=== PATIENT | female | born 1995 | race Caucasian/White ===

== ENCOUNTER 2020-12-24 15:06 | Inpatient (IN) | payer OTHER ==
[2020-12-24 17:44] LABS: HCT 37.1 % (37.0-47.0); HGB 12.7 g/dl (12.5-16.0); MCH 33.2 pg (25.0-31.0); MCHC 34.2 g/dL (32.0-36.0); MCV 97.1 fL (78.0-100.0); MPV 12.8 fL (6.0-9.5); RBC 3.82 M/uL (4.20-5.40); RDW 12.6 % (11.5-14.0); WBC 8.3 K/uL (4.0-10.5)
[2020-12-24 18:04] LABS: ALBUMIN 2.8 g/dL (3.4-5.0); BILIRUBIN - TOTAL 0.4 mg/dL (0.2-1.0); BUN/CREAT RATIO (CALC) 8.9 RATIO; CREATININE 0.56 mg/dL (0.51-0.95); GLOBULIN (CALCULATION) 3.8 g/dL; POTASSIUM 3.4 mmol/L (3.5-5.1); TOTAL PROTEIN 6.6 g/dL (6.4-8.2)
[2020-12-24 18:05] LABS: BILIRUBIN NEGATIVE (NEGATIVE); BLOOD NEGATIVE Ery/uL (NEGATIVE); CLARITY CLEAR (CLEAR); COLOR YELLOW (YELLOW); GLUCOSE (U) NORMAL (NORMAL); LEUKOCYTES TRACE Leu/uL (NEGATIVE); NITRITE NEGATIVE (NEGATIVE); PROTEIN NEGATIVE (NEGATIVE)
[2020-12-24 18:09] LABS: BACTERIA 1+
[2020-12-24 18:59] LABS: PROTEIN:CREATININE 0.13 RATIO; URINE CREATININE 113.9 mg/dL (29.00-226.00); URINE TOTAL PROTEIN-RANDOM 14.9 mg/dL (<11.9)
[2020-12-26 06:01] LABS: HCT 33.7 % (37.0-47.0); HGB 11.4 g/dl (12.5-16.0); MCH 33.3 pg (25.0-31.0); MCHC 33.8 g/dL (32.0-36.0); MCV 98.5 fL (78.0-100.0); MPV 12.5 fL (6.0-9.5); RBC 3.42 M/uL (4.20-5.40); RDW 12.5 % (11.5-14.0); WBC 8.3 K/uL (4.0-10.5)
== END 2020-12-27 14:45 | disposition home or self-care (01) | DRG 806 ==
LOC: FOB 15:06
PROVIDERS: Obstetrics & Gynecology; ADMIT Obstetrics & Gynecology
PROC: 10E0XZZ Delivery of Products of Conception, External Approach (ICD-10-PCS; principal; 2020-12-25)
PROC: 0UQMXZZ Repair Vulva, External Approach (ICD-10-PCS; 2020-12-25)
DX: O99.52 Diseases of the respiratory system complicating childbirth (principal); O98.32 Other infections with a predominantly sexual mode of transmission complicating childbirth; Z37.0 Single live birth; Z3A.40 40 weeks gestation of pregnancy; O66.0 Obstructed labor due to shoulder dystocia; J45.909 Unspecified asthma, uncomplicated; O71.82 Other specified trauma to perineum and vulva; R03.0 Elevated blood-pressure reading, without diagnosis of hypertension; F17.210 Nicotine dependence, cigarettes, uncomplicated; O99.334 Smoking (tobacco) complicating childbirth; Z14.8 Genetic carrier of other disease; A60.00 Herpesviral infection of urogenital system, unspecified; O99.344 Other mental disorders complicating childbirth; F41.9 Anxiety disorder, unspecified; F32.9 Major depressive disorder, single episode, unspecified; Z90.49 Acquired absence of other specified parts of digestive tract; Z90.89 Acquired absence of other organs
CPT/HCPCS: 36415; 80053; 81001; 82570; 83615; 84156; 84550; 86850; 86900; 86901; J2300; J2405; J7120; U0002

== ENCOUNTER 2021-02-24 20:05 | Emergency (ER) | payer OTHER | END 2021-02-24 23:35 | disposition home or self-care (01) | LOC: FER 20:05 | DX: S92.351A Displaced fracture of fifth metatarsal bone, right foot, initial encounter for closed fracture (principal); J45.909 Unspecified asthma, uncomplicated; F17.200 Nicotine dependence, unspecified, uncomplicated; W19.XXXA Unspecified fall, initial encounter; X50.1XXA Overexertion from prolonged static or awkward postures, initial encounter; Y92.009 Unspecified place in unspecified non-institutional (private) residence as the place of occurrence of the external cause | CPT/HCPCS: 73630 ==